=== PATIENT | male | born 1960 | race African-American/Black ===

== ENCOUNTER 2018-09-04 13:19 | Emergency (ER) | payer MEDICARE, MEDICAID ==
[~2018-09-04] VITALS: Ht 188 cm; Wt 72.6 kg
[~2018-09-04 13:19] MED LIST: AMBIEN10 M1 ORAL; LYRICA300 MG ORAL; NORCO1 E1 ORAL; SOMA350 MG PO; UNOBMED
[2018-09-04] MEDS ORDERED: Isovue-300 100ml vial INJ PRN (13:45)
[2018-09-04 13:53] VITALS: BP 120/91
--- NOTE | 2018-09-04 13:53 | NUR ---
ED Nurse Note: PT FROM HOME CAME IN DUE TO MID CHEST PAIN AND UPPER ABD PAIN WITH NIGHT SWEATS, DIARRHEA X 1 WEEK. PER PT, PAIN IS WORSE WHEN HE LAYS DOWN ON THE BED AND HE STATES, "I CANT'S SLEEP AT NIGHT". PT IS AAO X4, AMBULATORY WITH NON LABORED BREATHING. VSS.
--- NOTE | 2018-09-04 13:59 | NUR ---
ED Nurse Note: BLOOD/URINE SENT.
[2018-09-04] MEDS ORDERED: Dicyclomine HCl 10mg/5ml oral soln ORAL ONE (14:00)
--- NOTE | 2018-09-04 14:00 | Emergency Room Report ---
History of Present Illness General Chief Complaint: Chest Pain Source: Patient Present Illness HPI Patient is a 58-year-old male who presented after increased heartburn-like sensation to his chest. Patient reports having increased discomfort on and off for the past few days. He states is worse with supine position. He reports having prior history of diarrhea which he describes is watery nature. He had associated abdominal cramping. He reports having multiple episodes of discomfort at this time. He reports being a smoker and smokes approximately half pack per day. He denies any prior cardiac history. He states that he has prior history of chronic back pain and had previously been taking gabapentin as well as [place] and [place]. Allergies: Coded Allergies: No Known Allergies (Unverified , 01/03/14) Patient History Past Medical History: see triage record Reviewed Nursing Documentation: PMH: Agreed; PSxH: Agreed Nursing Documentation-PMH Past Medical History: No History, Except For Hx Neurological Problems: Yes - chronic back pain Review of Systems All Other Systems: negative except mentioned in HPI Physical Exam Vital Signs Date Time Temp Pulse Resp B/P (MAP) Pulse Ox O2 Delivery O2 Flow Rate FiO2 09/04/18 13:23 98.2 97 17 142/99 (113) 96 Room Air Sp02 EP Interpretation: reviewed, normal General Appearance: normal inspection, well appearing, no apparent distress, alert, GCS 15 Head: atraumatic ENT: normal ENT inspection, hearing grossly normal, normal voice Neck: normal inspection, full range of motion, supple, no bony tend Respiratory: normal inspection, lungs clear, normal breath sounds, no respiratory distress, no retraction, no wheezing Cardiovascular #1: regular rate, rhythm, no edema Gastrointestinal: normal inspection, normal bowel sounds, non tender, soft, no guarding, no hernia Genitourinary: no CVA tenderness Musculoskeletal: normal inspection, back normal, normal range of motion Neurologic: normal inspection, alert, oriented x3, responsive, 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 Differential diagnosis included but was not limited to acute coronary syndrome, pulmonary embolism, pneumonia, aortic dissection, shingles, pneumothorax, aortic dissection, esophageal rupture, pericarditis. Because of complexity of patient's case laboratory testing and imaging studies were ordered. Patient was noted to have some chest pain with associated diarrhea. This appears to be GI in nature.EKG interpreted by me showed normal sinus rhythm without acute ST or T wave changes.CT imaging of the abdomen pelvis showed new lung nodule as well as liver nodule. Patient was advised to follow-up with his primary care physician for outpatient management. Patient was given medications for symptomatic treatment of enteritis. He is also given p.o. antibiotics. Patient was advised to recheck with his primary care physician in 2 days due to chest discomfort. He is advised to return if any worsening of condition. Patient's troponin was noted to be negative. Labs Test 09/04/18 13:40 White Blood Count 6.9 K/UL (4.8-10.8) Red Blood Count 5.18 M/UL (4.70-6.10) Hemoglobin 15.6 G/DL (14.2-18.0) Hematocrit 46.4 % (42.0-52.0) Mean Corpuscular Volume 90 FL (80-99) Mean Corpuscular Hemoglobin 30.1 PG (27.0-31.0) Mean Corpuscular Hemoglobin Concent 33.6 G/DL (32.0-36.0) Red Cell Distribution Width 11.5 % (11.6-14.8) Platelet Count 313 K/UL (150-450) Mean Platelet Volume 5.9 FL (6.5-10.1) Neutrophils (%) (Auto) 60.4 % (45.0-75.0) Lymphocytes (%) (Auto) 28.9 % (20.0-45.0) Monocytes (%) (Auto) 8.2 % (1.0-10.0) Eosinophils (%) (Auto) 1.3 % (0.0-3.0) Basophils (%) (Auto) 1.2 % (0.0-2.0) Urine Color Pale yellow Urine Appearance Clear Urine pH 8 (4.5-8.0) Urine Specific [place] 1.010 (1.005-1.035) Urine Protein Negative (NEGATIVE) Urine Glucose (UA) Negative (NEGATIVE) Urine Ketones 3+ (NEGATIVE) Urine Blood Negative (NEGATIVE) Urine Nitrite Negative (NEGATIVE) Urine Bilirubin Negative (NEGATIVE) Urine Urobilinogen Normal MG/DL (0.0-1.0) Urine Leukocyte Esterase Negative (NEGATIVE) Sodium Level 140 MMOL/L (136-145) Potassium Level 3.3 MMOL/L (3.5-5.1) Chloride Level 103 MMOL/L (98-107) Carbon Dioxide Level 29 MMOL/L (21-32) Anion Gap 8 mmol/L (5-15) Blood Urea Nitrogen 7 mg/dL (7-18) Creatinine 1.1 MG/DL (0.55-1.30) Estimat Glomerular Filtration Rate > 60 mL/min (>60) Glucose Level 112 MG/DL (74-106) Calcium Level 9.6 MG/DL (8.5-10.1) Total Bilirubin 0.5 MG/DL (0.2-1.0) Aspartate Amino Transf (AST/SGOT) 28 U/L (15-37) Alanine Aminotransferase (ALT/SGPT) 56 U/L (12-78) Alkaline Phosphatase 77 U/L (46-116) Total Creatine Kinase 136 U/L (26-308) Creatine Kinase MB 0.8 NG/ML (0.0-3.6) Creatine Kinase MB Relative Index 0.5 Troponin I 0.000 ng/mL (0.000-0.056) Total Protein 7.3 G/DL (6.4-8.2) Albumin 4.4 G/DL (3.4-5.0) Globulin 2.9 g/dL Albumin/Globulin Ratio 1.5 (1.0-2.7) Urine Opiates Screen Negative (NEGATIVE) Urine Barbiturates Screen Negative (NEGATIVE) Phencyclidine (PCP) Screen Negative (NEGATIVE) Urine Amphetamines Screen Negative (NEGATIVE) Urine Benzodiazepines Screen Negative (NEGATIVE) Urine Cocaine Screen Negative (NEGATIVE) Urine Marijuana (THC) Screen Positive (NEGATIVE) EKG Diagnostic Results Rate: normal - 71 Rhythm: NSR ST Segments: no acute changes Last Vital Signs Date Time Temp Pulse Resp B/P (MAP) Pulse Ox O2 Delivery O2 Flow Rate FiO2 09/04/18 13:53 97 17 Room Air 09/04/18 13:53 98.2 120/91 100 Status: improved Disposition: HOME, SELF-CARE Condition: Stable Scripts Loperamide Hcl (ANTI-DIARRHEAL) 2 Mg Tablet 2 MG PO DAILY, #14 TAB Prov: Sachin Alvarenga MD 09/04/18 Trimethoprim/Sulfamethoxazole 160/800* (BACTRIM DS TABLET*) 1 Each Tablet 1 TAB ORAL Q12H, #14 TAB 0 Refills Prov: Sachin Alvarenga MD 09/04/18 Dicyclomine Hcl* (DICYCLOMINE HCL*) 10 Mg Capsule 10 MG ORAL QID, #20 CAP Prov: Sachin Alvarenga MD 09/04/18 Sachin Alvarenga MD Sep 04, 2018 14:00
[2018-09-04 14:09] LABS: BASOPHILS % (AUTO) 1.2 % (0.0-2.0); EOSINOPHILS % (AUTO) 1.3 % (0.0-3.0); HEMATOCRIT 46.4 % (42.0-52.0); HEMOGLOBIN 15.6 G/DL (14.2-18.0); LYMPHOCYTES % (AUTO) 28.9 % (20.0-45.0); MEAN CORPUSCULAR VOLUME 90 FL (80-99); MONOCYTES % (AUTO) 8.2 % (1.0-10.0); NEUTROPHILS % (AUTO) 60.4 % (45.0-75.0); PLATELET COUNT 313 K/UL (150-450); RED BLOOD COUNT 5.18 M/UL (4.70-6.10); RED CELL DISTRIBUTION WIDTH 11.5 % (11.6-14.8); WHITE BLOOD COUNT 6.9 K/UL (4.8-10.8)
[2018-09-04 14:10] LABS: APPEARANCE,URINE CLEAR; BILIRUBIN, URINE NEGATIVE (NEGATIVE); COLOR,URINE PALE YELLOW; GLUCOSE, URINE (UA) NEGATIVE (NEGATIVE); KETONES,URINE 3+ (NEGATIVE); LEUKOCYTE ESTERASE ,URINE NEGATIVE (NEGATIVE); NITRITE,URINE NEGATIVE (NEGATIVE); PH,URINE 8 (4.5-8.0); PROTEIN,URINE NEGATIVE (NEGATIVE); UROBILINOGEN,URINE NORMAL MG/DL (0.0-1.0)
[2018-09-04 14:23] LABS: ANION GAP 8 mmol/L (5-15); BLOOD UREA NITROGEN 7 mg/dL (7-18); CALCIUM 9.6 MG/DL (8.5-10.1); CARBON DIOXIDE 29 MMOL/L (21-32); CHLORIDE 103 MMOL/L (98-107); CREATININE 1.1 MG/DL (0.55-1.30); POTASSIUM 3.3 MMOL/L (3.5-5.1); SODIUM 140 MMOL/L (136-145)
[2018-09-04 14:39] LABS: ALANINE AMINOTRANSFERASE 56 U/L (12-78); ALBUMIN 4.4 G/DL (3.4-5.0); ALBUMIN/GLOBULIN RATIO 1.5 (1.0-2.7); ALKALINE PHOSPHATASE 77 U/L (46-116); ASPARTATE AMINO TRANSFERASE 28 U/L (15-37); BILIRUBIN,TOTAL 0.5 MG/DL (0.2-1.0); CKMB 0.8 NG/ML (0.0-3.6); CREATINE KINASE 136 U/L (26-308)
--- NOTE | 2018-09-04 15:54 | Diagnostic Imaging Report ---
Clinical Indication: Abdominal pain Technique: No oral contrast utilized, per emergency room physician request IV administration nonionic contrast. Venous phase spiral acquisition obtained through the abdomen and pelvis. Multiplanar reconstructions were generated. Total dose length product 553.65 mGycm. CTDIvol(s) 10.41 mGy. Dose reduction achieved using automated exposure control Comparison: none Findings: Lack of enteric contrast limits assessment of the GI tract. Normal appendix. No evidence of diverticulosis or diverticulitis. Proximal small bowel loops are somewhat prominent, fluid-filled and demonstrates some mural enhancement. No free or loculated intraperitoneal gas or fluid is evident. The distal esophagus, stomach, duodenum are unremarkable. The liver demonstrates a lesion bridging segments 8 and 5, the periphery near the gallbladder fossa which measures approximately 3.7 cm in diameter, demonstrates low-attenuation center and peripheral nodular enhancement. A subcentimeter low-attenuation lesion is seen in segment 8 which is too small to characterize. The gallbladder and bile ducts are unremarkable. The pancreas, spleen, adrenals, kidneys are unremarkable. No retroperitoneal or mesenteric mass or adenopathy. No pelvic mass or adenopathy. The prostate is enlarged, measuring 5 cm transverse. The seminal vesicles are somewhat prominent and there is equivocal mild bladder wall thickening. The included lung bases demonstrate minimal posterior dependent atelectatic changes, are otherwise clear. The bones demonstrate minimal lower lumbar facet arthrosis. Impression: Limited assessment of the GI tract, due to lack of enteric contrast administration Very questionable prominent proximal small bowel loops with possibly some mural enhancement. If real, could indicate mild enteritis changes. Correlate with clinical findings No acute process otherwise 3.7 cm lesion in the right hepatic lobe. In retrospect, a very subtle low-attenuation lesion of similar size is probably visible on a prior chest CT angiogram of 01/04/2014. Peripheral nodular enhancement pattern is suggestive of but not confirmatory for a benign hemangioma. Consider further evaluation with hemangioma specific CT or MRI; at a minimum, consider ultrasound to confirm typical features of such Prostatomegaly Equivocal mild bladder wall thickening. Probably an artifact of under distention but cystitis also possible. Correlate with clinical findings Incidental finding of minimal basilar pulmonary dependent atelectatic changes and minimal lower lumbar facet arthrosis. The CT scanner at [facility] is accredited by the [employer] and the scans are performed using protocols designed to limit radiation exposure to as low as reasonably achievable to attain images of sufficient resolution adequate for diagnostic evaluation.
[2018-09-04] MEDS ORDERED: BACTRIM DS TAB1 EAC1 ORAL (16:20)
[2018-09-04] MEDS ORDERED: ANTI-DIARRHEAL2 M1 PO (16:20)
[2018-09-04] MEDS ORDERED: DICYCLOMINE HCL10 MG ORAL (16:20)
[2018-09-04 16:25] VITALS: BP 129/82
--- NOTE | 2018-09-04 16:25 | NUR ---
ER DISCHARGE NOTE: Patient is cleared to be discharged per ERMD, pt is aox4, on room air, with stable vital signs. pt was given dc and prescription instructions, pt was able to verbalize understanding, pt id band and iv site removed without complications. pt is able to ambulate with steady gait. pt took all belongings.
--- NOTE | 2018-09-04 18:38 | Diagnostic Imaging Report ---
Indication: Chest pain Technique: One view of the chest Comparison: 02/04/2014 Findings: Symmetric bilateral basilar nodular opacities are consistent with nipple shadows. Lungs and pleural spaces are otherwise clear. Heart size is normal. No significant interim change Impression: No acute process
--- NOTE | 2018-09-05 16:06 | Cardiology Report ---
APPROVED REPORT EKG Measurement Heart [id number] Normal sinus rhythm Normal ECG
== END 2018-09-04 16:25 | disposition home or self-care (01) ==
LOC: EMR 14:17
DX: K52.9 Noninfective gastroenteritis and colitis, unspecified (principal); R16.0 Hepatomegaly, not elsewhere classified; F17.210 Nicotine dependence, cigarettes, uncomplicated
CPT/HCPCS: 36415; 71045; 74177; 80053; 80307; 81003; 82550; 82553; 84484; 85025; 93005; 96374; 96375; 99284; J2405; Q9967; S0028; J8499

== ENCOUNTER 2019-01-07 14:32 | Emergency (ER) | payer MEDICARE, MEDICAID ==
[~2019-01-07] VITALS: Ht 188 cm; Wt 72.6 kg
[~2019-01-07 14:32] MED LIST changes: +ANTI-DIARRHEAL2 M1 PO; +BACTRIM DS TAB1 EAC1 ORAL; +DICYCLOMINE HCL10 MG ORAL
[2019-01-07 14:40] VITALS: BP 126/87
[2019-01-07 14:50] VITALS: BP 126/87
--- NOTE | 2019-01-07 14:50 | NUR ---
ER Nurse Note: Patient walked in to ER from home due to decreased appepite. Patient alert and oriented x4 and amulatory. Skin clean and intact. Calm and cooperative. No acute distress noted at this time.
--- NOTE | 2019-01-07 15:30 | NUR ---
ED Nurse Note: Pt cleared by health care Provider for discharge. DC instructions/prescription was given and explained to pt and verbalized understanding of teachings. All medical deviecs such as ID band removed. Pt is AAO x4, ambulatory and left with all personal belongings.
--- NOTE | 2019-01-07 20:06 | Emergency Room Report ---
History of Present Illness General Chief Complaint: General Complaint Source: Patient Present Illness HPI Patient presents with complaints and reports of decreased oral intake Reports that he has been feeling more weak than usual secondary to this denies any difficulty swallowing denies any throat pain denies any headache denies any chest pain On further questioning patient reports that he has been Under increased stress and he feels that he loses his appetite with this Denies any rash denies any fevers or chills Allergies: Coded Allergies: No Known Allergies (Unverified , 01/03/14) Patient History Past Medical History: see triage record Reviewed Nursing Documentation: PMH: Agreed; PSxH: Agreed Nursing Documentation-PMH Past Medical History: No History, Except For Hx Neurological Problems: Yes - chronic back pain Review of Systems All Other Systems: negative except mentioned in HPI Physical Exam Vital Signs Date Time Temp Pulse Resp B/P (MAP) Pulse Ox O2 Delivery O2 Flow Rate FiO2 01/07/19 14:40 98.1 91 18 126/87 (100) 95 Room Air Sp02 EP Interpretation: reviewed, normal General Appearance: well appearing, no apparent distress Head: normocephalic, atraumatic Eyes: bilateral eye PERRL, bilateral eye EOMI ENT: hearing grossly normal, normal pharynx, TMs + canals normal, uvula midline Neck: full range of motion, supple, no meningismus, no bony tend Respiratory: lungs clear, normal breath sounds, no rhonchi, no respiratory distress, no retraction, no accessory muscle use Cardiovascular #1: normal peripheral pulses, regular rate, rhythm, no edema, no gallop, no JVD, no murmur Gastrointestinal: normal bowel sounds, non tender, soft, no mass, no organomegaly, non-distended, no guarding, no hernia, no pulsatile mass, no rebound Genitourinary: no CVA tenderness Musculoskeletal: normal inspection Neurologic: oriented x3, responsive, 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, motor strength/ tone normal, sensory intact Psychiatric: mood/affect normal Skin: no rash Lymphatic: normal inspection, no adenopathy Medical Decision Making Diagnostic Impression: Primary Impression: Encounter for generalized patient complaints Additional Impression: mse ER Course Patient has a very benign medical evaluation he was initially placed into the paramedics from for evaluation and upon my return Patient was eating 2 sandwiches And chips along with a diet 7-Up Patient reports that he feels that the situation and the environment he was in was causing increased stress and in this type of environment he was feeling better and now was able to eat Continues to deny any abdominal pain patient has Appropriate evaluation at this time is stable for close outpatient follow-up Last Vital Signs Date Time Temp Pulse Resp B/P (MAP) Pulse Ox O2 Delivery O2 Flow Rate FiO2 01/07/19 15:30 98.0 71 18 127/74 95 Room Air Status: improved Disposition: HOME, SELF-CARE Condition: Improved Referrals: NOT CHOSEN IPA/,REFERRING (PCP) [facility] Grady [facility]. [facility] Patient Instructions: Medical Screening Exam Additional Instructions: Patient is provided with the discharge instructions notified to follow up with primary doctor in the next 2-3 days otherwise return to the er with any worsening symptoms. Please note that this report is being documented using DRAGON technology. This can lead to erroneous entry secondary to incorrect interpretation by the dictating instrument. Alyx Felipe DO Jan 07, 2019 20:06
== END 2019-01-07 16:00 | disposition home or self-care (01) ==
LOC: EMR 15:36
DX: R53.1 Weakness (principal); G89.29 Other chronic pain; M54.9 Dorsalgia, unspecified; R63.0 Anorexia; Z68.20 Body mass index [BMI] 20.0-20.9, adult
CPT/HCPCS: 99281